=== PATIENT | female | born 1990 | race Caucasian/White ===

== ENCOUNTER 2016-09-26 09:11 | Emergency (ER) | payer OTHER ==
[~2016-09-26] VITALS: Ht 165.1 cm; Wt 72.6 kg
[~2016-09-26 09:11] MED LIST: MEDROL DOSEPAK1 PAC PO; TRAMADOL HCL50 M1 PO; YASMIN 3 MG-0.01 TAB PO
--- NOTE | 2016-09-26 10:46 | ED HAND/WRIST INJURY COMPLAINT ---
History of Present Illness General Chief Complaint: Laceration Procedure Stated Complaint: LAC TO LT HAND Source: patient Exam Limitations: no limitations Vital Signs & Intake/Output Vital Signs & Intake/Output Vital Signs Date Time Temp Pulse Resp B/P Pulse O2 O2 Flow FiO2 Ox Delivery Rate 09/26 1056 98.6 76 18 126/84 98 Room Air 09/26 0926 98.3 70 16 122/84 97 Room Air Allergies Coded Allergies: sulfamethoxazole (From BACTRIM) (HIVES 09/26/16) trimethoprim (From BACTRIM) (HIVES 09/26/16) Reconcile Medications ETHINYL ESTRADIOL/DROSPIRENONE (Brooke 28 Tablet) 1 TAB TAB 1 TAB PO DAILY BC (Reported) Methylprednisolone. (Medrol) 1 PAC PAC 1 PAC PO DAILY ALLERGIC REACTION TAKE PAC DIRECTED Tramadol HCl 50 MG TABLET 1 TAB PO BIDP PRN PAIN Triage Note: PT TO ER WITH LAC TO LHAND BETWEEN POINTER FINGER AND MIDDLE FINGER. PT STATES "THAT IT IS DEEP AND SHE SHES GUTS." PT STATES THAT IT LARKIN. Triage Nurses Notes Reviewed? yes : No Patient currently breastfeeds: No HPI: 25-year-old female here with complaints of laceration to left hand between the second and third digits. She was using a knife to separate frozen food when the knife slipped and she stuck herself in the hand. She has moderate to severe sharp pain worse with palpation and motion. She has not called her last tetanus shot. She has not neurologic symptoms of weakness or numbness. There is mild bleeding that is controlled with a bandage. No other injuries. (JOSSELYN KELLER) Past History Travel History Traveled to [place] past 21 day No Medical History Any Pertinent Medical History? see below for history Endocrine: hypothyroidism Cancer(s): thyroid cancer Tetanus Vaccine: Surgical History Surgical History: non-contributory Psychosocial History What is your primary language Czech Tobacco Use: Never used Family History Hx Contributory? No (JOSSELYN KELLER) Review of Systems Review of Systems Constitutional: Reports: see HPI. EENTM: Reports: no symptoms. Respiratory: Reports: no symptoms. Cardiovascular: Reports: no symptoms. GI: Reports: no symptoms. Genitourinary: Reports: no symptoms. Musculoskeletal: Reports: see HPI. Skin: Reports: no symptoms. Neurological/Psychological: Reports: no symptoms. Hematologic/Endocrine: Reports: no symptoms. Immunologic/Allergic: Reports: no symptoms. All Other Systems: Reviewed and Negative (JOSSELYN KELLER) Physical Exam Physical Exam General Appearance: well developed/nourished Hand Left: evidence of injury Hand Right: normal inspection Comments: Well-developed well-nourished no apparent distress. HEENT: Atraumatic, extraocular motion intact Neck: Supple, no lymphadenopathy Back: Nontender Respiratory: No respiratory distress Extremities: No edema, full range of motion Neuro: Alert and oriented x3 Psych: Mood affect normal, normal memory normal judgment. Skin: Warm and dry, no rash on exposed skin Left hand, 2.5 cm laceration that is approximately 1 cm deep at the webspace between the second and third fingers. No active bleeding. The hand and fingers are neurovascularly intact with full range of motion (JOSSELYN KELLER) Progress Differential Diagnosis: abscess, tendon laceration, foreign body, nerve laceration, arterial laceration Plan of Care: Current Medications Sig/Pedro Start time Last Medication Dose Stop Time Status Admin Tetanus/Diphtheria 0.5 ML ONCE ONE 09/26 1045 AC Toxoids Adsorbed 09/26 1046 (Decavac) Comments: After verbal consent was obtained the laceration area was anesthetized with lidocaine 1% plain lidocaine, 3 mL It was prepped and draped in a sterile fashion with Betadine. The wound was copiously irrigated with normal saline. The wound was inspected and no foreign bodies or tendon lacerations were noted on exam and there is no functional deficit. There is no arterial bleeding. 5 -0 nylon simple interrupted sutures were placed 4 Sutures in total. Bacitracin and sterile dressing was applied. Distally the neurovascular status was intact postprocedure. The patient tolerated the procedure well without complications. Infection and risk of foreign body or tendon laceration was discussed with patient. Follow-up instructions and wound care was discussed. Tetanus vaccine was given (OJSSELYN KELLER) Departure Departure Disposition: HOME OR SELF CARE Condition: Stable Clinical Impression Primary Impression: Laceration of hand, left Qualifiers: Encounter type: initial encounter Qualified Code: S61.412A - Laceration without foreign body of left hand, initial encounter Referrals: PAMELA ALLEN,ISIS Godinez (PCP/Family) Referred to [facility] as new patient No Additional Instructions: Follow-up in 7-10 days either with your doctor or return to the emergency room for wound check and removal of sutures/varsha Watch for signs of infection: Redness, swelling, pain, fever, discharge The possibility of a tendon laceration or foreign body exists. Please watch for signs of infection and return with any concerns Departure Forms: Customer Survey General Discharge Information (TERRELL WAGNER,JOSSELYN) PA/BINDER STRIPPER MACHINE Co-Sign Statement Statement: ED Attending supervision documentation- [] I saw and evaluated the patient. I have also reviewed all the pertinent lab results and diagnostic results. I agree with the findings and the plan of care as documented in the PA's/BINDER STRIPPER MACHINE's documentation. [X] I have reviewed the ED Record and agree with the PA's/BINDER STRIPPER MACHINE's documentation. [] Additions or exceptions (if any) to the PAs/BINDER STRIPPER MACHINE's note and plan are summarized below: [] (VONNIE ALLEN,TAYLOR)
[2016-09-26 10:56] VITALS: BP 126/84
== END 2016-09-26 10:56 ==
LOC: ERH 09:11
DX: S61.412A Laceration without foreign body of left hand, initial encounter (principal); W26.0XXA Contact with knife, initial encounter; Y93.G1 Activity, food preparation and clean up
CPT/HCPCS: 90471; 90714

== ENCOUNTER 2016-10-06 16:43 | Emergency (ER) | payer OTHER ==
[~2016-10-06] VITALS: Ht 165.1 cm; Wt 72.6 kg
[2016-10-06 16:49] VITALS: BP 113/74
--- NOTE | 2016-10-06 16:57 | ED ANIMAL BITE/WOUND CHECK ---
History of Present Illness General Chief Complaint: Suture Removal/Wound Recheck Stated Complaint: LEFT HAND STITCH REMOVAL Source: patient Exam Limitations: no limitations Vital Signs & Intake/Output Vital Signs & Intake/Output Vital Signs Date Time Temp Pulse Resp B/P Pulse O2 O2 Flow FiO2 Ox Delivery Rate 10/06 1657 100 10/06 1649 97.9 78 16 113/74 99 Room Air Allergies Coded Allergies: sulfamethoxazole (From BACTRIM) (HIVES 09/26/16) trimethoprim (From BACTRIM) (HIVES 09/26/16) Reconcile Medications ETHINYL ESTRADIOL/DROSPIRENONE (Brooke 28 Tablet) 1 TAB TAB 1 TAB PO DAILY BC (Reported) Methylprednisolone. (Medrol) 1 PAC PAC 1 PAC PO DAILY ALLERGIC REACTION TAKE PAC DIRECTED Tramadol HCl 50 MG TABLET 1 TAB PO BIDP PRN PAIN Triage Note: HERE FOR SUTURE REMOVAL LEFT HAND THAT WHERE PLACED NEW Triage Nurses Notes Reviewed? yes Onset: Abrupt Duration: day(s):, constant, continues in ED Timing: recent history Injury Environment: home No Modifying Factors: none : No Patient currently breastfeeds: No HPI: 18-year-old female comes into emergency room for suture removal to left hand. 3 sutures placed in the middle between left second and third fingers. No redness. No swelling. No discharge. Denies any other associated symptoms. (SOREN STONE) Past History Travel History Traveled to [place] past 21 day No Medical History Any Pertinent Medical History? see below for history Endocrine: hypothyroidism Cancer(s): thyroid cancer Tetanus Vaccine: 09/26/16 Surgical History Surgical History: non-contributory Psychosocial History What is your primary language Ghanaian Tobacco Use: Never used ETOH Use: occasional use Illicit Drug Use: denies illicit drug use Family History Hx Contributory? No (SOREN STONE) Review of Systems Review of Systems Constitutional: Reports: no symptoms. EENTM: Reports: no symptoms. Respiratory: Reports: no symptoms. Cardiovascular: Reports: no symptoms. GI: Reports: no symptoms. Genitourinary: Reports: no symptoms. Musculoskeletal: Reports: no symptoms. Skin: Reports: see HPI. Neurological/Psychological: Reports: no symptoms. Hematologic/Endocrine: Reports: no symptoms. Immunologic/Allergic: Reports: no symptoms. All Other Systems: Reviewed and Negative (SOREN STONE) Physical Exam Physical Exam General Appearance: well developed/nourished, mild distress Head: atraumatic Eyes: Bilateral: normal appearance. Ears, Nose, Throat: normal ENT inspection, hearing grossly normal Neck: normal inspection Respiratory: no respiratory distress Back: normal inspection Extremities: 4 SUTURES LEFT HAND, NO ERYTHEMA, NO WARMTH, NO DISCHARGE Neurologic/Psych: awake, alert, oriented x 3, normal mood/affect Skin: intact, normal color, warm/dry Lymphatic: no anterior cervical lorraine (SOREN STONE) Progress Differential Diagnosis: abscess, cellulitis, joint infection, tenosysnovitis Plan of Care: 10/06/2016 5:24:08 PM All sutures removed. No signs of infection. (SOREN STONE) Departure Departure Disposition: HOME OR SELF CARE Condition: Stable Clinical Impression Primary Impression: Visit for suture removal Referrals: PAMELA ALLEN,ISIS Godinez (PCP/Family) Additional Instructions: Keep martha tape in place for another 5-7 days. Watch for signs of infection such as redness or discharge fever chills. Return if any other concerns. Please go over all results of today's visit with your primary care doctor. Contact your primary care doctor to let them know you were here in the emergency room. There may be nonspecific findings which may not be related to your visit today here in the emergency room but may require further evaluation and chronic monitoring by your primary care doctor. If you had a laceration today the chance of foreign body always remains. You should follow-up with your primary care doctor for recheck in 3-5 days for a wound check. If you had an x-ray done there is a chance that a fracture could have been missed on initial read and you should follow-up with your primary care doctor for repeat x-rays if symptoms persist. If your blood pressure was elevated here in the emergency room please have rechecked by her primary care doctor within the next 48 hours by your primary care doctor. If you were prescribed a narcotic here in the emergency room or any type of controlled substances you're not allowed to drive while taking this medication or operate any type of heavy machinery. Narcotics can make you feel lightheaded dizziness nausea and can cause constipation. You may need to garbage pick up worker a stool softener. Thank you for choosing [facility] emergency room. Please return to the emergency room immediately if you have any other concerns worsening of symptoms. Departure Forms: Customer Survey General Discharge Information (SOREN STONE) PA/AUTO WASHER Co-Sign Statement Statement: ED Attending supervision documentation- [] I saw and evaluated the patient. I have also reviewed all the pertinent lab results and diagnostic results. I agree with the findings and the plan of care as documented in the PA's/AUTO WASHER's documentation. [X] I have reviewed the ED Record and agree with the PA's/AUTO WASHER's documentation. [] Additions or exceptions (if any) to the PAs/AUTO WASHER's note and plan are summarized below: [] (VONNIE ALLEN,TAYLOR)
== END 2016-10-06 17:00 ==
LOC: ERH 16:43
DX: Z48.02 Encounter for removal of sutures (principal)
CPT/HCPCS: 99281

== ENCOUNTER 2017-02-20 02:52 | Emergency (ER) | payer OTHER ==
[~2017-02-20] VITALS: Ht 166.4 cm; Wt 72.6 kg
[2017-02-20 03:01] VITALS: BP 114/77
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
[2017-02-20] MEDS ORDERED: TRUVADA 200 MG1 EACH PO ×2 (05:39→06:08)
[2017-02-20] MEDS ORDERED: ISENTRESS400 M1 PO ×2 (05:39→06:08)
[2017-02-20] MEDS ORDERED: OCELLA 3 MG-0.1 EACH PO (06:13)
[2017-02-20] MEDS ORDERED: LEVOTHYROXINE150 MCG PO (06:13)
[2017-02-20 06:19] LABS: ABSOLUTE BASOPHIL COUNT 0 /CUMM (0.0-0.2); ABSOLUTE EOSINOPHIL COUNT 0.1 /CUMM (0.0-0.7); ABSOLUTE GRANULOCYTE CT 5.8 /CUMM (1.4-6.5); ABSOLUTE LYMPH COUNT 2.7 /CUMM (1.2-3.4); ABSOLUTE MONOCYTE COUNT 0.7 /CUMM (0.10-0.60); BASOPHIL % 0.5 % (0.0-2.0); EOSINOPHIL % 1.3 % (0-5); GRANULOCYTE % 62.2 % (42.2-75.2); HEMATOCRIT 38.2 % (37-47); MEAN CORPUSCULAR HGB 27.7 PG (27.0-31.0); MEAN CORPUSCULAR HGB CONC 33.7 G/DL (33.0-37.0); MEAN CORPUSCULAR VOLUME 82.3 FL (81.0-99.0); MEAN PLATELET VOLUME 7.7 FL (7.4-10.4); PLATELET COUNT 284 /CUMM (130-400); RBC DISTRIBUTION WIDTH 12.9 % (11.5-14.5); RED BLOOD CELL CT 4.64 /CUMM (4.20-5.40); WHITE BLOOD CELL COUNT 9.4 /CUMM (4.8-10.8)
== END 2017-02-20 06:14 ==
LOC: ERH 02:52
PROVIDERS: Pediatrics
DX: S40.212A Abrasion of left shoulder, initial encounter (principal); W46.0XXA Contact with hypodermic needle, initial encounter; Y93.41 Activity, dancing; Y92.29 Other specified public building as the place of occurrence of the external cause
CPT/HCPCS: 86803; 87389